=== PATIENT | female | born 1990 | race Caucasian/White ===

== ENCOUNTER → 2022-02-19 07:21 | Outpatient (CLI) | payer OTHER | END | disposition home or self-care (01) | LOC: NUCLEAR 07:21 | PROVIDERS: ATTEND Anesthesiology Pain Medicine | DX: G90.522 Complex regional pain syndrome I of left lower limb (principal) ==

== ENCOUNTER 2022-06-10 08:53 | Outpatient (CLI) | payer OTHER | END 2022-06-10 09:07 | disposition home or self-care (01) | LOC: RX STUDY 08:53 | PROVIDERS: ATTEND Obstetrics & Gynecology Reproductive Endocrinology | DX: N94.6 Dysmenorrhea, unspecified (principal) ==